=== PATIENT | male | born 1975 | race Caucasian/White ===

== ENCOUNTER 2017-01-08 07:16 | Day surgery (SDC) | payer MEDICAID ==
[2017-01-08] MEDS ORDERED: FLUMAZENIL 0.5 MG/5 ML MDV IVP ONE (07:31)
[2017-01-08] MEDS ORDERED: NALOXONE HCL 0.4 MG/ML INJ ONE (07:32)
[2017-01-08] MEDS ORDERED: fentaNYL 100 MCG/2 ML INJ ONE (07:32)
[2017-01-08] MEDS ORDERED: MIDAZOLAM 2 MG/2 ML VIAL ONE (07:33)
[2017-01-08] MEDS ORDERED: LIDOCAINE 1% 30 ML SDV ONE (09:13)
[2017-01-08] MEDS ORDERED: IOPAMIDOL (ISOVUE-M 300) 15 ML VIAL ONE (09:13)
[2017-01-08] MEDS ORDERED: TRIAMCINOLONE ACETONIDE 200 MG/5 ML MDV IM ONE (09:13)
== END 2017-01-08 10:40 | disposition home or self-care (01) ==
LOC: FIMAGING 07:16
PROVIDERS: ATTEND Physician Assistant Surgical
PROC: 3E0R33Z Introduction of Anti-inflammatory into Spinal Canal, Percutaneous Approach (ICD-10-PCS; principal; 2017-01-08 09:56)
DX: M54.41 Lumbago with sciatica, right side (principal); M51.36 Other intervertebral disc degeneration, lumbar region
CPT/HCPCS: J2250; J2310; J3010; J3301; Q9967

== ENCOUNTER 2017-01-09 11:09 | Emergency (ER) | payer MEDICAID ==
[2017-01-09] MEDS ORDERED: OXYCODONE/APAP 5/325 TAB PO ONE (12:01)
[2017-01-09] MEDS ORDERED: NS 1,000 ML IV ONE (12:03)
--- NOTE | 2017-01-09 12:12 | EDPHY ---
H & P Stated Complaint: EPIPDURAL AT L5 YESTERDAY, NOW WITH NUMBNESS R LEG Time Seen by Provider: 01/09/17 11:50 HPI/ROS: HPI: 41-year-old male presents to emergency department with chief concern right leg weakness, numbness, pain that onset suddenly this morning associated with urinary incontinence upon awakening. Had an L5 epidural yesterday here in Radiology. Has chronic back pain and is awaiting back surgery, but the pain he is experiencing now is very different from his chronic pain. Reports 8/10 right low back pain shooting into the posterior and lateral thigh associated with numbness. Reports right leg weakness that is not usually present. No fever, chills, nausea, vomiting, incontinence of bowel., or saddle anesthesia. Back pain managed by Dr. Michael Lozada. Current daily smoker. Currently unemployed. ROS:10 point review of systems is negative other than as stated in HPI Source: Patient - Personal History Current Tetanus/Diphtheria Vaccine: Yes Current Tetanus Diphtheria and Acellular Pertussis (TDAP): Yes Tetanus Vaccine Date: < 10 YEARS - Medical/Surgical History Hx Asthma: No Hx Chronic Respiratory Disease: Yes Hx Diabetes: No Hx Cardiac Disease: No Hx Renal Disease: No Hx Cirrhosis: No Hx Alcoholism: No Hx HIV/AIDS: No Hx Splenectomy or Spleen Trauma: No Other PMH: BACK ISSUES, L NEHPRECTOMY - Social History Smoking Status: Former smoker Alcohol Use: Rarely Drug Use: None - Physical Exam Exam: Vital signs stable, reviewed by me Constitutional: Alert, calm, cooperative. No acute distress. HEENT: Head normocephalic. PERRLA, EOMI. No pallor or injection. Neck: Supple, nontender. Full range of motion. Respiratory: Breathing unlabored. Lungs clear to auscultation bilaterally. Cardiovascular: Heart rate regular. S1-S2. DP/PT pulses 2+ bilaterally. Gastrointestinal: Abdomen soft, nontender. Bowel sounds normoactive x4 quadrants. Neuro: Patellar and Achilles DTRs 2+ left, diminished right Strength 5+ left lower extremity, 3+ right lower extremity. Point tenderness to palpation of lumbar spine L4/5, and right low back. Radiculopathy on straight leg raise bilaterally. Diminished sensation of the L4-5 dermatome. Plantar flexion and dorsiflexion of right great toe significantly reduced. No saddle anesthesia. Musculoskeletal: Range of motion inhibited. Constitutional: Initial Vital Signs Temperature (C) 36.5 C 01/09/17 11:10 Heart Rate 76 01/09/17 11:10 Respiratory Rate 16 01/09/17 11:10 Blood Pressure 149/79 H 01/09/17 11:10 O2 Sat (%) 98 01/09/17 11:10 O2 Delivery Mode Room Air Allergies/Adverse Reactions: Plastic tape Allergy (Intermediate, Uncoded 01/05/17 14:23) Home Medications: Medication Instructions Recorded Cyclobenzaprine [Flexeril 10 MG 1 tab PO DAILY 08/08/16 (*)] Esomeprazole Mag Trihydrate 1 tab PO DAILY 08/08/16 [Nexium] Gabapentin 1 tab PO BID 08/08/16 Hydrocodone/Acetaminophen [[place] 1 - 2 tab PO Q6H PRN 08/08/16 5/325 (*)] Medical Decision Making - Diagnostics Imaging Results: Imaging Impressions Lumbar Spine MRI 01/09/17 12:00 Impression: 1. No evidence of epidural hematoma or fluid collection post epidural steroid injection one day earlier. 2. Features of degenerative disk disease at L5-S1 with diffuse annular bulging and moderate bilateral neural foraminal narrowing. 3. Nonvisualization of left kidney suggests congenital or postsurgical absence. Results called to Didi Shepherd, Nurse Practitioner, at 2:25 PM. ED Course/Re-evaluation: 1210:41-year-old male presents to emergency department with right low back pain radiating into the right leg associated with weakness, numbness and incontinence of urine. Had an L5 injection yesterday and Radiology. MRI with and without pending. 1445: MRI negative for evidence of hematoma or fluid collection. There is degenerative disc disease at L5-S1. I have discussed these findings with the patient. He will follow up with Dr. Michael Lozada within the next 1-2 days for recheck. He has Percocet and Flexeril at home to manage his pain. Understands he should return should his symptoms worsen. Differential Diagnosis: Differential diagnosis includes but is not limited to cauda equina, hematoma, disc herniation, spinal stenosis, lumbar radiculopathy - Data Points Laboratory Results: Laboratory Results 01/09/17 12:20 01/09/17 12:20 Sodium 140 mEq/L mEq/L (134-144) Potassium 4.3 mEq/L mEq/L (3.5-5.2) Chloride 105 mEq/L mEq/L (97-110) Carbon Dioxide 24 mEq/l mEq/l (22-31) Anion Gap 11 mEq/L mEq/L (8-16) BUN 12 mg/dL mg/dL (7-23) Creatinine 1.0 mg/dL mg/dL (0.7-1.3) Estimated GFR > 60 Glucose 91 mg/dL mg/dL (70-100) Calcium 9.9 mg/dL mg/dL (8.5-10.4) Medications Given: Discontinued Medications Hydrocodone Bitart/Acetaminophen ([place] 5/325) 2 tab PO EDNOW ONE Stop: 01/09/17 14:12 Last Admin: 01/09/17 14:14 Dose: 2 tab Sodium Chloride (Ns) 1,000 mls @ 0 mls/hr IV ONCE ONE PRN Reason: Wide Open Stop: 01/09/17 12:04 Last Admin: 01/09/17 12:52 Dose: 1,000 mls Lorazepam (Ativan Injection) 1 mg IVP EDNOW ONE Stop: 01/09/17 12:30 Last Admin: 01/09/17 12:52 Dose: 1 mg Oxycodone/Acetaminophen (Percocet 5/325) 2 tab PO EDNOW ONE Stop: 01/09/17 12:02 Last Admin: 01/09/17 14:16 Dose: Not Given Departure - Departure Disposition: Home, Routine, Self-Care Clinical Impression: Lumbar radiculopathy, acute Condition: Good Instructions: Lumbar Radiculopathy (ED) Additional Instructions: Plan: You may use 600 mg of ibuprofen every 6 hours for fever, inflammation, or pain. Always take ibuprofen with food and stay well hydrated while taking. Do not exceed the maximum allowable dose in a 24 hour period which is 2400 mg. May use her Percocet and Flexeril as you have been at home Follow up with your provider Dr. Michael Lozada tomorrow for recheck without fail as discussed--When you call to schedule appointment, please let the office know you are an "ER follow up" appointment" Referrals: MICHAEL LOZADA [Other] - As per Instructions
[2017-01-09] MEDS ORDERED: LORazepam 2 MG/ML INJ IVP ONE (12:29)
[2017-01-09 12:53] LABS: ANION GAP 11 mEq/L (8-16); CALCIUM 9.9 mg/dL (8.5-10.4); CARBON DIOXIDE 24 mEq/l (22-31); CHLORIDE 105 mEq/L (97-110); GLOMERULAR FILTRATION RATE > 60; GLUCOSE 91 mg/dL (70-100); POTASSIUM 4.3 mEq/L (3.5-5.2); SODIUM 140 mEq/L (134-144)
[2017-01-09] MEDS ORDERED: GADOBUTROL 10 ML VIAL IVP ONE (13:32)
[2017-01-09] MEDS ORDERED: HYDROCODONE/APAP 5/325 TAB PO ONE (14:11)
[2017-01-09 14:24] VITALS: BP 114/80; PULSE 68; RESP 18; TEMP 98.4; O2SAT 97
== END 2017-01-09 14:59 | disposition home or self-care (01) ==
DX: M54.16 Radiculopathy, lumbar region (principal); G89.29 Other chronic pain; Z87.891 Personal history of nicotine dependence
CPT/HCPCS: 96374; A9585; J2060

== ENCOUNTER → 2017-08-11 | Outpatient (CLI) | payer MEDICAID | LOC: SBRMNEURO 21:30 | PROVIDERS: ATTEND Internal Medicine Sleep Medicine | DX: G47.31 Primary central sleep apnea (principal) ==